=== PATIENT | male | born 1950 | race Caucasian/White ===

== ENCOUNTER 2020-11-26 06:18 | Inpatient (IN) | payer OTHER ==
[~2020-11-26] VITALS: Ht 172.7 cm; Wt 145.2 kg
[~2020-11-26 06:18] MED LIST: CARVEDILOL12.5 MG PO; CENTRUM SILVER1 EAC2 PO; COREG25 M1 PO; FOLATE PO; VITAMIN B-125000 MCG PO; WARFARIN SODIUM3 MG PO
[2020-11-26 07:05] VITALS: BP 168/85
[2020-11-26 07:55] LABS: INR 1.11
[2020-11-26 14:42] VITALS: BP 143/86
[2020-11-26 15:26] VITALS: BP 148/82
[2020-11-26 16:26] VITALS: BP 138/82
[2020-11-26 17:59] VITALS: BP 118/68
--- NOTE | 2020-11-26 19:25 | NUR ---
ASSUME PT CARE AROUND 1430. PT HAD LEFT TOTAL KNEE REPLACEMENT DONE TODAY. ARELIS DRAIN IN PLACE. TEDS/SCDS IN PLACE. NO C/O PAIN.IV LEFT AC/ SALINE LOCKED.TOLERATING FLUIDS AND FOOD. URINATED ONETIME DURING THE SHIFT. H/O SLEEP APNEA, PT HAS HOME CPAP WITH HIM. VSS. FALL PRECAUTION IN PLACE. CALL LIGHT IN REACH. WILL CALL APPROPRIATELY. PT ALERT X ORIENTED X 4. ON ROOM AIR. DAUGHTER AND IN THE ROOM TILL 1700. HOURLY ROUNDING DONE. SHIFT REPORT GIVEN TO INSTRUCTOR WATCH ASSEMBLY.
[2020-11-26 19:38] VITALS: BP 110/61
[2020-11-27 07:31] VITALS: BP 127/75
[2020-11-27 07:48] LABS: CREATININE 1.9 mg/dL (0.7-1.3); MAGNESIUM 1.7 mg/dL (1.8-2.4); POTASSIUM 4.4 mmol/L (3.5-5.1)
[2020-11-27 07:53] LABS: ABSOLUTE NEUTROPHILS 6.6 thou/uL (1.4-8.2); BASOPHILS 0.2 % (0.0-2.0); HEMATOCRIT 33.9 % (42.0-52.0); HEMOGLOBIN 11.3 gm/dL (14.0-18.0); LYMPHOCYTES 9.4 % (24.0-44.0); MCH 30.3 pg (26.0-34.0); MCHC 33.3 g/dL (28.0-37.0); MCV 91.1 fL (80.0-100.0); MONOCYTES 11.7 % (1.0-8.0); PLATELET COUNT 135 thou/uL (150-400); POLYS 78.7 % (36.0-66.0); RBC 3.72 mil/uL (4.50-6.00); RDW 14.6 % (10.5-14.5); WBC 8.4 thou/uL (4.0-11.0)
--- NOTE | 2020-11-27 08:37 | NUR ---
PT LYING IN BED. VOIDING PER URINAL. DENIES PAIN. RESTING COMFORTABLY. NO NEEDS VOICED. CALL LIGHT WITHIN REACH. FREQUENT OBSERVATION.
--- NOTE | 2020-11-27 13:01 | NUR ---
ASSESSMENT: CM REVIEWED CHART AND SPOKE WITH PATIENT ANDH IS SIGNIFICANT OTHER AT THE BEDSIDE. PT IS ALERT AND ORIENTED X4. PT IS S/P TOTAL KNEE REPLACEMENT. PT HAS A WHEELCHAIR AT HOME THAT HE NORMALLY USES WELL A WALKER AND CANE. PT HAS A RAMP TO ENTER THE HOME. PT REPORTS THAT HE HAS A GRAB BAR IN THE SHOWER. PT REPORTS THAT HE PLANS ON DOING OUTPATIENT THERAPY HERE AND [facility] AND ALREADY COMES HERE FOR LYMPHEDEMA WRAPPING OUTPATIENT. CM DISCUSSED ROLE. PT DOES NOT ANTICIPATE ANY NEEDS FROM CM. CM WILL CONTINUE TO FOLLOW TO ASSIST NEEDED.
[2020-11-27 17:15] VITALS: BP 126/70
[2020-11-27 20:27] LABS: INR 1.06; PROTIME 11.5 Seconds (10.5-12.1)
--- NOTE | 2020-11-27 20:34 | NUR ---
ASSUMED PT CARE AROUND 704. PT ALERT X ORIENTED X 4. ON ROOM AIR. VOIDING/URINALS.IV LEFT FA.PT USES CPAP AT NIGHT, USES HIS OWN CPAP FROM HOME.PICCO DRESSING/SCDS/TEDS ON. ON REGULAR DIET. WORKED WITH THERAPY TWICE, PAIN MEDS GIVEN BEFORE THERAPY. PT HAD A CONCERN WHEN HE CAN RESTART HIS WARFARIN. RN LET DR. ALCALA KNOW ABOUT IT AND SAID TO CHECK WITH THE SURGEON. RN CALLED DR. REBECCA SHELBY'S OFFICE AND LET THEM KNOW ABOUT THE PT'S QUESTION ABOUT WARFARIN, THE LADY OVER THE PHONE SAID, SHE WILL CHECK AND WILL LET THE NURESE KNOW. FALL PRECAUTION IN PLACE. CALL LIGHT IN REACH. WILL CALL APPROPRIATELY. HOURLY ROUNDING DONE. SHIFT REPORT GIVEN TO LATEX THREAD MACHINE OPERATOR.
[2020-11-27 21:24] VITALS: BP 143/73
--- NOTE | 2020-11-28 02:27 | NUR ---
ASSESSED AT START OF SHIFT. PT RESTING IN BED. HYDROCODONE GIVEN FOR LEFT KNEE PAIN. ARELIS DRESSING IN PLACE, TEDHOSE AND LYPHEDEMA DRESSING ON BLE. DENIES N/V. PT WEARS CPAP AT NIGHT. URINAL AT BEDSIDE. DR FERNANDEZ STOPPED BY TO SEE PT, RESTARTED HIS WARFRIN AND HELD PT ASPIRIN. FALL PREC IN PLACE, CALL LIGHT AT REACH WILL CONT TO MONITOR.
[2020-11-28 03:37] LABS: ALBUMIN 2.5 g/dL (3.4-5.0); CALCIUM 7.3 mg/dL (8.5-10.1); CREATININE 1.5 mg/dL (0.7-1.3); PHOSPHORUS 2.9 mg/dL (2.6-4.7); POTASSIUM 3.8 mmol/L (3.5-5.1)
[2020-11-28 09:19] VITALS: BP 154/90
--- NOTE | 2020-11-28 14:34 | NUR ---
Assumed care of pt at 0700. Pt a&ox4. Pain controlled with prn pain meds. Dressing c/d/i. Skin tear on left ocasio. Picture taken and placed in chart. Up 1x assist. Family at bedside. Call light within reach. Fall precautions in place. Will continue to monitor.
--- NOTE | 2020-11-28 15:38 | NUR ---
ON-GOING ASSESSMENT: CM REVIEWED CHART AND SPOKE WITH PHYSICAL THERAPY WHO REPORTS PT DECLINED AND LIKELY NEED POST ACUTE CARE. CM SPOKE WITH PATIENT AND PROVIDED HIM WITH A SNF LIST THAT HE WILL REVIEW. PT REPORTS HE PREFERS TO GO TO [facility]. CM DISCUSSED A CONSULT WOULD NEED TO BE PLACED AND HE WOULD HAVE TO BE EVALUATED. PT REPORTS THIS IS HIS FIRST CHOICE AND WANTS TO SEE IF HE CAN GO. CM NOTIFIED BEDSIDE RN OF REQUEST FOR CONSULT WELL [facility]. CM WILL CONTINUE TO FOLLOW.
[2020-11-28 16:50] VITALS: BP 154/93
[2020-11-28 19:55] VITALS: BP 112/62
--- NOTE | 2020-11-29 03:15 | NUR ---
ASSESSED AT START OF SHIFT. PT RESTING IN BED. DENIES PAIN ON ASSESSMENT. EVENING MEDS GIVEN AND PT JULIAN IT WELL. IV INTACT AND SALINE LOCK. ICE PACK IN PLACE. PT WEARS CPAP AT HS. JERZY LYMPEDEMA DRESSING ON BOTH EXT. FALL PREC IN PLACE AND CALL LIGHT AT REACH. ANTICIPATING D/C TO [facility].
[2020-11-29 05:10] VITALS: BP 138/72
[2020-11-29 06:23] LABS: INR 1.14; PROTIME 12.4 Seconds (10.5-12.1)
[2020-11-29 07:15] VITALS: BP 137/71
--- NOTE | 2020-11-29 10:03 | NUR ---
Assumed care of pt at 0700. Pt a&ox4. Pain controlled with prn pain meds. Bilateral lower extremities wrapped by lymphedema nurse. Cpap at night. [facility] consulted. Pt states he hopes to be accepted to inpatient rehab. Call light within reach. Fall precautions in place. Will continue to monitor.
[2020-11-29] MEDS ORDERED: NORCO7.5 PO (15:20)
[2020-11-29] MEDS ORDERED: PROTONIX 20 MG20 M1 PO (15:20)
[2020-11-29] MEDS ORDERED: VISTARIL 25 MG25 M1 PO (15:20)
[2020-11-29] MEDS ORDERED: CARVEDILOL25 MG PO (15:20)
[2020-11-29] MEDS ORDERED: CARVEDILOL12.5 MG PO (15:20)
[2020-11-29] MEDS ORDERED: [UNRECOGNIZED DRUG - REMARK] PO (15:20)
[2020-11-29 16:10] VITALS: BP 144/90
[2020-11-29 17:22] VITALS: BP 144/90
== END 2020-11-29 18:39 | DRG 470 ==
LOC: OR → TBA 06:21 → OR 11:06 → 4S 14:04 → OR 14:04 → 4S 11-29 18:39
PROVIDERS: Anesthesiology; Hospitalist; Nurse Practitioner; ADMIT Orthopaedic Surgery; ATTEND Orthopaedic Surgery
PROC: 5A09457 Assistance with Respiratory Ventilation, 24-96 Consecutive Hours, Continuous Positive Airway Pressure (ICD-10-PCS; principal; 2020-11-26)
PROC: 0SRD0J9 Replacement of Left Knee Joint with Synthetic Substitute, Cemented, Open Approach (ICD-10-PCS; principal; 2020-11-26)
DX: M17.12 Unilateral primary osteoarthritis, left knee (principal); N17.9 Acute kidney failure, unspecified; Z68.42 Body mass index [BMI] 45.0-49.9, adult; I48.91 Unspecified atrial fibrillation; E66.9 Obesity, unspecified; I10 Essential (primary) hypertension; I89.0 Lymphedema, not elsewhere classified; R53.81 Other malaise; G47.33 Obstructive sleep apnea (adult) (pediatric); Z20.822 Contact with and (suspected) exposure to COVID-19; Z86.718 Personal history of other venous thrombosis and embolism; Z79.82 Long term (current) use of aspirin; Z79.899 Other long term (current) drug therapy
CPT/HCPCS: 10102; 50010; 50101; 50415; 51225; 51412; 53000; 53078; 53364; 54118; 56524; 56525; 56527; 56528; 56531; 57095; 57103; 57180; 58585; 58847; 62110; 62850; 70005

== ENCOUNTER 2020-11-29 12:55 | Inpatient (IN) | payer OTHER ==
[~2020-11-29] VITALS: Ht 172.7 cm; Wt 133.8 kg
[2020-11-29] MEDS ORDERED: VISTARIL 25 MG25 M1 PO (15:20)
[2020-11-29] MEDS ORDERED: CARVEDILOL25 MG PO (15:20)
[2020-11-29] MEDS ORDERED: CARVEDILOL12.5 MG PO (15:20)
[2020-11-29] MEDS ORDERED: PROTONIX 20 MG20 M1 PO (15:20)
[2020-11-29] MEDS ORDERED: [UNRECOGNIZED DRUG - REMARK] PO (15:20)
[2020-11-29] MEDS ORDERED: NORCO7.5 PO (15:20)
--- NOTE | 2020-11-29 18:25 | NUR ---
NEW ADMISSION FROM [address] [place] [address]. CAME IN VIA BED WITH HOSP STAFF. ALERT AND ORIENTATED X 4. PAIN IS STABLE. HAS ICE PACK TO L KNEE INCISION SITE. LYMPHEDEMA WRAP IN PLACE. PEDAL PULSES PALPABLE. ROOM ORIENTATION GIVEN TO PT. REPORT GIVEN TO ONCALFREDO HERNANDEZ RN, ALETHEA.
[2020-11-29 19:31] VITALS: BP 133/71
--- NOTE | 2020-11-29 23:27 | NUR ---
PT ADMITTED THIS EVENING AFTER HAVING LEFT KNEE REPLACEMENT. VSS. MEDS GIVEN ORDERED AND WELL TOLERATED. PT ADMIT/HX/AND CONSENTS COMPLETED. ICE PACK APPLIED TO LEFT KNEE FOR COMFORT. PRN PAIN MEDICATION WORKING WELL. DSGS TO LEFT LEG DRY AND INTACT. LYMPH EDEMA WRAPS IN PLACE. PT VOIDING MODERATE AMOUNT OF YELLOW URINE PER URINAL. SLEEPING WELL. WILL CONTINUE TO MONITOR FREQUENTLY.
[2020-11-30 04:31] LABS: HEMATOCRIT 30.2 % (42.0-52.0); HEMOGLOBIN 10.2 gm/dL (14.0-18.0); MCH 30.6 pg (26.0-34.0); MCHC 33.8 g/dL (28.0-37.0); MCV 90.3 fL (80.0-100.0); RBC 3.35 mil/uL (4.50-6.00); RDW 14.3 % (10.5-14.5); WBC 4.8 thou/uL (4.0-11.0)
[2020-11-30 04:49] LABS: CALCIUM 8.2 mg/dL (8.5-10.1); CREATININE 1.2 mg/dL (0.7-1.3); POTASSIUM 3.9 mmol/L (3.5-5.1)
[2020-11-30 08:54] VITALS: BP 164/71
[2020-11-30 10:22] LABS: INR 1.29; PROTIME 13.9 Seconds (10.5-12.1)
--- NOTE | 2020-11-30 13:21 | NUR ---
ASSUMED CARE AT 0700. ALERT AND ORIENTATED X 4. REPORTED PAIN IN L KNEE AT 4/10 AND REQ FOR HYDROCODONE WITH GOOD RELIEF. APPETITE GOOD, LAST BM ON 11/26 AND ROBERTO CARLOS SAIL FINISHER HAND ADDED STOOL REGIMEN. L KNEE SURGICAL DRESSING WITH LYMPHEDEMA WRAP IN PLACE. PEDAL PULSES PALPABLE. ON COUMADIN FOR HX OF DVT, NO NOTED BLEEDING, WILL CONT TO MONITOR.
[2020-11-30 13:51] LABS: FOLIC ACID 20.8 ng/mL (8.6-58.9)
[2020-11-30 19:10] VITALS: BP 146/82
--- NOTE | 2020-12-01 00:01 | NUR ---
PT ALERT AND ORIENTED X 4. CPAP ON DURING THE NIGHT. LEFT KNEE DRESSING C/D/I. VOIDING ADEQUATE AMTS CLEAR YELLOW URINE PER URINAL. PT DENIES PAIN OR DISCOMFORT. BED ALARM ON FOR SAFETY. PT APPEARS TO BE SLEEPING ON HOURLY ROUNDS.
[2020-12-01 02:05] LABS: GLYCOHEMOGLOBIN (HGB A1C) 4.7 % (4.8-5.6)
[2020-12-01 05:19] LABS: INR 1.4
--- NOTE | 2020-12-01 09:37 | NUR ---
WOUND CARE CONSULT; AWAKE, ALERT, LYMPHEDEMA WRAPS IN PLACE, STATES HILLARY PT TREATING L LEG WOUND WHEN WRAPS APPLIED, PT TRANSFERRED TO [address] [place] [id number] FOR THERAPY, WILL DC CONSULT, ROAD CLEANER IN ROOM, TO RECONSULT IF NEEDED, MESSAGE LEFT FOR OT ON NEW RM# ROAD CLEANER AWARE
--- NOTE | 2020-12-01 12:46 | NUR ---
ASSUMED CARE AT 0700. SLEPT WELL. ALERT AND ORIENTATED X4. PAIN IS STABLE AND MANAGEABLE. DOES NOT REQ ANY PAIN MEDS THIS MORNING. LLE WITH SURGICAL DRESSING INTACT. LYMPHEDEMA WRAP IN PLACE AND WILL BE CHANGED TOMORROW BY LYMP THERAPIST. PEDAL PULSES PALPABLE AND ABLE TO MOVE ALL TOES. PARTICIPATING WITH TERAPY. APPETITE GOOD, STOOL REGIMEN GIVEN, LAST BM ON 11/26. WILL CONT TO MONITOR.
--- NOTE | 2020-12-01 13:17 | NUR ---
Nutrition: RD received consult re: weight loss, S/P knee replacement. See education log for details. Pt eating well on regular diet. PMH: HTN, obesity, ulcer. Lymphedema to bilateral legs. Would recommend consider heart healthy diet restriction. Otherwise, low nutrition risk.
--- NOTE | 2020-12-01 15:43 | NUR ---
ASSESSMENT: CM REVIEWED CHART AND SPOKE WITH PATIENT. PT WAS ADMITTED TO 5 ON TUESDAY AFTER HAVING AN ELECTIVE TKA DUE TO FAILED OUTPATIENT TREATMENT FOR HIS ADVANCED DJD. PT LIVES AT HOME WITH HIS SHADE. PT HAS A RAMP TO ENTER HIS HOME. PT HAS A YULISSA WHEELCHAIR AND HAS BEEN USING THIS FOR ABOUT THE PAST THREE MONTHS DUE TO DIFFICULTY WITH AMBULATION. PT ALSO HAS A WALKER AND CANE AT HOME. PT WAS ABLE TO TRANSFER SELF IN WHEELCHAIR. PT HAS A GRAB BAR IN THE SHOWER WELL A SHOWER BENCH. PT REPORTS HE HAS NEVER HAD HH IN THE PAST OR BEEN TO A POST ACUTE CARE STAY. PT WAS COMING TO [facility] OUTPATIENT FOR LYMPHEDMA WRAPPING. IT PATIENT IS NEEDING ANY OUTPATIENT THERAPY AT DISCHARGE HE PREFERS TO COME TO [facility]. CM DISCUSSED ROLE. PT WILL CONTINUE TO WORK WITH THERAPIES. CM WILL CONTINUE TO FOLLOW TO ASSIST NEEDED. PTS PCP IS DR. LELO GR.
[2020-12-01 19:34] VITALS: BP 134/77
--- NOTE | 2020-12-01 23:46 | NUR ---
PT ALERT AND ORIENTED X 4. DRESSING TO LLE C/D/I. LYMPHEDEMA WRAPS TO LE'S. CPAP ON DURING THE NIGHT. LAXATIVES GIVEN ORDERED. NO RESULTS YET. PT DENIES PAIN OR DISCOMFORT. BED ALARM ON FOR SAFETY. PT APPEARS TO BE SLEEPING ON HOURLY ROUNDS.
[2020-12-02 05:53] LABS: INR 1.47; PROTIME 15.7 Seconds (10.5-12.1)
[2020-12-02 08:00] VITALS: BP 123/71
--- NOTE | 2020-12-02 11:36 | NUR ---
PT ALERT AND ORIENTED TIMES FOUR. VSS. PT C/O PAIN PRN PAIN MEDICATIONS CONTROLLING PAIN WELL. PT UP SITTING IN THE WC. PT TOLERATES MEDS AND MEALS. PT AT BEDSIDE. PT PROGRESSING TOWRADS POC GOALS.
--- NOTE | 2020-12-02 13:48 | NUR ---
Team meeting, recommendation: wound care consult. lymphedema wraps. Will need bariatric bedside commode at [place]. insurance doesn't cover. working on slide board transfer. Sleeps in recliner chair at home. AL 12/12/20 ( pt, ot, nursing ).
[2020-12-02 19:00] VITALS: BP 128/70
--- NOTE | 2020-12-03 02:35 | NUR ---
ASSESSMENT: PT REMAIN ALERT AND ORIENT TIMES FOUR. VISITOR WAS AT THE BEDSIDE AT THE BEGINNING OF THE SHIFT UNTIL 0900 PM. VSS, AFEBRILE. PRN PAIN MEDS GIVEN FOR C/O LEG PAIN. LYMPH WRAPS INTACT. POSSIBLE DC TO HOME ON 12/12. SLOW PROGRESS TOWARDS DC GOAL, WILL CONTINUE TO MONITOR.
[2020-12-03 06:05] LABS: INR 1.7; PROTIME 17.1 Seconds (9.3-11.4)
[2020-12-03 07:15] VITALS: BP 147/94
--- NOTE | 2020-12-03 16:19 | NUR ---
PT RESTING COMFORTABLY. WORKED WITH PT/OT. UP TO CHAIR MORE THAN IN BED. PT AFEBRILE, ADEQUATE UOP, NO BM, APPROPRIATE APPETITE. ARELIS DRESSING IN PLACE. WOUND CARE TO BE COMPLETED BY LYMPH TEAM. PT HAS BEEN THOUROUGHLY UPDATED AND EDUCATED ON PT CONDITION AND POC.
[2020-12-03 18:13] VITALS: BP 115/55
--- NOTE | 2020-12-04 00:52 | NUR ---
ASSUMED CARE AT 1900 ON 12/03. PATIENT IS A&OX4, DENIES PAIN OR DISCOMFORT. ARELIS DRESSING TO LEFT KNEE CDI, LYMPHEDEMA WRAPS IN PLACE ON BLE. BOWEL MOVEMENT MEDICATIONS ADMINISTERED, BOWEL SOUNDS PRESENT AND ACTIVE, ABD SOFT TO PALPATION. CPAP ON AT HS, CURRENTLY SLEEPING IN BED, URINAL AT BEDSIDE, BED ALARM ON, AND CALL LIGHT W/IN REACH. WILL CONTINUE TO MONITOR.
[2020-12-04 06:36] LABS: INR 1.92; PROTIME 20.3 Seconds (10.5-12.1)
[2020-12-04 08:25] VITALS: BP 158/68
--- NOTE | 2020-12-04 08:41 | NUR ---
PT UP WITH OT AND HAD A SOFT BM. PT REFUSED ANY STOOL LAXATIVES AT THIS TIME OR STOOL SOFTENER. ADM LOVENOX, PT STATED HE WAS GETTING THAT ONCE A DAY AROUND DINNER TIME. PT STATED HE TRIED TO GET LOVENOX BEFORE FOR A MONTH AND IT COST $1700 SO HE DIDN'T TAKE IT. PT ON COUMADIN FOR DVT. PT LUNGS CLEAR AND ON ROOM AIR. PT IN W/C AT THIS TIME, PT USING SLIDE BOARD FOR TRANSFERS.
--- NOTE | 2020-12-04 09:00 | HC ---
[facility] [place] [address] CONSULTATION Name: JOSÉ MIGUEL CUEVAS Room #: 503-P [facility] IN M.R.#: [id number] Admission: 11/29/20 Attend Phys: Cal Mac MD Discharge: Date of : 52 Report #: [id number] THIS REPORT FOR: cc: Toro Garnett K. Steven DO Althoff, Jeffrey R. MD ~ DOC #: [id number] Ronni Cho MD DATE OF SERVICE: 12/02/2020 CHIEF COMPLAINT: Ulceration to the left lower extremity. HISTORY OF PRESENT ILLNESS: This is a 70-year-old male patient admitted to the hospital after left total knee replacement, having failed outpatient therapeutic treatment. He has lymphedema and has been seeing occupational therapy for wrappings. He has had limited mobility due to his left knee. He was noted to have an ulceration on the left pretibial region. I have been asked to see him in this regard. PAST MEDICAL HISTORY: Positive for history of hypertension, previous DVT, history of sleep apnea, history of bilateral lower extremity lymphedema and obesity. SOCIAL HISTORY: Negative for alcohol or tobacco use. MEDICATIONS: Include Coumadin, Coreg, hydrocodone, Vistaril, Protonix, cyanocobalamin, Centrum Silver. ALLERGIES: No known drug allergies. FAMILY HISTORY: Noncontributory. REVIEW OF SYSTEMS: CONSTITUTIONAL: Denies fever, chills, weight loss. NEUROLOGICAL: The patient has quadriplegia. Denies focal weakness, some tingling. EYES: The patient denies visual changes, redness or drainage. ENT: The patient denies earache, nasal drainage, sore throat. CARDIOVASCULAR: The patient denies chest pain, palpitations, diaphoresis. PULMONARY: No cough, shortness of breath. GASTROINTESTINAL: Denies nausea, vomiting, diarrhea or abdominal pain. ORTHOPEDIC: The patient has swelling in both lower extremities, ulceration to the left pretibial region and some pain in his left knee. Others listed in a 14-point review of systems are negative. PHYSICAL EXAMINATION: [facility] [address] [place] [address] CONSULTATION Name: JOSÉ MIGUEL CUEVAS Room #: 503-P [facility] IN M.R.#: [id number] Admission: 11/29/20 Attend Phys: Cal Mac MD Discharge: Date of : 52 Report #: [id number] VITAL SIGNS: Include temperature 36.5, pulse 63, respiration 18, blood pressure 134/77. GENERAL: This is a chronically ill-appearing male. The patient appears to be in minimal distress. HEENT: Head is normocephalic. Nose and throat are clear. NECK: Supple. LUNGS: Diminished. HEART: Regular rhythm. ABDOMEN: Soft, bowel sounds present. Lower extremities: Demonstrate 2+ edema bilaterally. He has a venous type ulceration of the left pretibial region, recent surgical changes to the left knee is noted at this time. LABORATORY DATA: Include white blood cell count 4.8 with a hemoglobin 10.2. Sodium is 141, potassium 3.9, chloride 106, CO2 27, BUN 17, creatinine 1.2. CLINICAL IMPRESSION: 1. Venous type ulceration to the left pretibial region. 2. Lymphedema, bilateral lower extremities. 3. Recent left total knee replacement, 11/26/2020. 4. Hypertension. 5. Atrial fibrillation. RECOMMENDATIONS: At this point in time, we will recommend Aquacel AG and bordered foam to be changed 3 times per week. He will continue to receive lymphedema therapy per the occupational therapist, Vannessa, while here in the hospital. I appreciate being asked to see him in consultation. Ronni Cho MD JRA/MIHIR <ELECTRONICALLY SIGNED> By: Ronni Cho MD 12/04/20 0900 [id number] Ronni Cho MD /nt
--- NOTE | 2020-12-04 09:11 | NUR ---
PT GETTING READY TO HAVE PHYSICAL THERAPY AND WANTING A PAIN PILL. ADM NORCO 7.5MG PO FOR PAIN TO LOWER LEGS OF 3 ON 1-10 SCALE. PT STATED THAT HE WILL NEED THE MED DURING THERAPY SESSION. PT GETTING LEFT LEG DRESSING CHANGED BY WOUND NURSE, TOOK A PIC OF LEFT FOOT AND PLACED IN CHART.
--- NOTE | 2020-12-04 12:23 | NUR ---
Chart review, cont. dcp. Slide board and bbsc not covered by insurance. Will cont. discharge planing. Dc 9th with hh ( pt ot nursing).
[2020-12-04 19:14] VITALS: BP 148/74
--- NOTE | 2020-12-04 23:52 | NUR ---
PT ALERT AND ORIENTED X 4. ARELIS DRESSING INTACT TO LEFT KNEE. NAYELY WRAPS INTACT TO BILAT LE'S. PT REFUSED LACTULOSE, MIRALAX AND COLACE AT HS. PT DENIES PAIN OR DISCOMFORT. BED ALARM ON FOR SAFETY. PT APPEARS TO BE SLEEPING ON HOURLY ROUNDS. CPAP ON DURING THE NIGHT.
[2020-12-05 04:33] LABS: INR 2.23; PROTIME 23.4 Seconds (10.5-12.1)
[2020-12-05 05:01] LABS: ABSOLUTE NEUTROPHILS 2.5 thou/uL (1.4-8.2); BASOPHILS 0.9 % (0.0-2.0); EOSINOPHILS 4.2 % (0.0-3.0); HEMATOCRIT 29.8 % (42.0-52.0); HEMOGLOBIN 10.1 gm/dL (14.0-18.0); LYMPHOCYTES 20.4 % (24.0-44.0); MCH 30.4 pg (26.0-34.0); MCHC 33.7 g/dL (28.0-37.0); MCV 90.1 fL (80.0-100.0); MONOCYTES 14.1 % (1.0-8.0); PLATELET COUNT 196 thou/uL (150-400); POLYS 60.4 % (36.0-66.0); RBC 3.31 mil/uL (4.50-6.00); RDW 14.5 % (10.5-14.5); WBC 4.1 thou/uL (4.0-11.0)
[2020-12-05 05:47] LABS: CALCIUM 8.3 mg/dL (8.5-10.1); CREATININE 1.4 mg/dL (0.7-1.3); MAGNESIUM 1.8 mg/dL (1.8-2.4); POTASSIUM 3.8 mmol/L (3.5-5.1)
[2020-12-05 08:30] VITALS: BP 136/65
[2020-12-05 19:25] VITALS: BP 139/71
--- NOTE | 2020-12-05 19:37 | NUR ---
ASSUMED C/O PT AT 0700. PT RESTING QUIETLY WITH EYES CLOSED. PT. A&OX4. PT GAIT STEADY WITH GB AND WALKER. PT WORKS WITH THERAPIES. TOLERATING DIET. GOOD APPETITE NOTED. WILL CONTNIUE TO MONITOR
--- NOTE | 2020-12-06 03:22 | NUR ---
ASSUMED CARE AT 1900 OF 12/05. PATIENT IS A&OX4, DENIES PAIN OR SOB. LYMPHEDEMA WRAPS IN PLACE AN INTACT ON BLE. ARELIS DRESSING IN PLACE OVER LEFT KNEE CDI. URINAL PLACED AT BEDSIDE AND USED BY PATIENT INDEPENDENTLY. CPAP ON AT HS, CURRENTLY SLEEPING, CALL LIGHT W/IN REACH AND BED ALARM ON. WILL CONTINUE TO MONITOR.
--- NOTE | 2020-12-06 08:15 | NUR ---
PT LYING IN BED THIS AM. PT HAS BOTH LOWER EXT WRAPPED IN NAYELY BANDAGE. PT LEFT EXT MORE EDEMATOUS THAN RT. PT USES SLIDE BOARD WHEN TRANSFERING. PT ABLE TO SLIDE WITH TOUCH ASSIST. PT USES URINAL TO VOID, PT URINE IS DARK COLOR. LUNGS CLEAR, PT HAS CPAP AT HS. ACTIVE BOWEL SOUNDS.
[2020-12-06 08:42] VITALS: BP 142/75
--- NOTE | 2020-12-06 09:00 | NUR ---
PT UP TO BSC IN BATHROOM VIA SLIDE BOARD FROM W/C TO COMMODE. PT HAD SOFT BM. PT STATED I DON'T NEED THOSE LAXATIVES.
--- NOTE | 2020-12-06 14:40 | NUR ---
PT FINISHED WITH THERAPY AND STATED HE NEEDED A PAIN PILL FOR PAIN OF 3 ON 1-10 SCALE. ADM HYDROCODONE 7.5MG PO FOR PAIN. PT IN BED WITH LEGS ELEVATED.
[2020-12-06 21:04] VITALS: BP 129/69
--- NOTE | 2020-12-07 04:13 | NUR ---
PT RESTED WELL THROUHGOUT HOURLY ROUNDS , BED ALARM REMAINS ON, CALL LIGHT IN REACH , NO CHANGES NOTED IN PT ASSESSMENT.
[2020-12-07 05:21] LABS: INR 2.34; PROTIME 24.5 Seconds (10.5-12.1)
[2020-12-07 09:10] VITALS: BP 126/74
--- NOTE | 2020-12-07 09:33 | NUR ---
PT REFUSED LAXATIVES AT THIS TIME DUE TO SOFT BM EARLY THIS AM. PT IN BED WITH LE ELEVATED. PT STATED HE THINKS HE HAS PHYSICAL THERAPY AT NOON AND WILL PROB LIKE A PAIN MED AT THAT TIME. PT LUNGS CLEAR. PT HAS EDEMA TO PEDAL BILAT, LEFT SLIGHTLY MORE THAN RT. PT USES SLIDE BOARD TO TRANSFER TO CHAIR OR TOILET OR W/C.
--- NOTE | 2020-12-07 11:41 | NUR ---
PT WORKING WITH THERAPY. ADM METHOCARBANOL FOR COMPLAINTS OF MUSCLE SPASMS.
--- NOTE | 2020-12-07 14:42 | NUR ---
ADM HYDROCODONE 7.5MG PO FOR PAIN TO LEFT LEG OF 3 ON 1-10 SCALE.
[2020-12-07 18:00] VITALS: BP 126/74
[2020-12-07 19:00] VITALS: BP 112/64
--- NOTE | 2020-12-08 03:18 | NUR ---
ASSUMED CARE AT 1900 OF 12/07. PATIENT IS A&OX4, REPORTS PAIN AND MUSCLE SPAMS IN LLE EXTREMITY. PRN HYDROCODONE AND METHOCARBAMOL ADMINISTERED PER PATIENT REQUEST. PATIENT REFUSED LAXITIVES AND STOOL SOFTNER, DUE TO HAVING BM IN AM. USING URINAL AT BEDSIDE. CPAP ON AT HS. BED ALARM ON AND CALL LIGHT W/IN REACH.
[2020-12-08 08:47] VITALS: BP 1321/74
--- NOTE | 2020-12-08 11:43 | NUR ---
Nutrition followup: Pt eating 100% of meals on regular diet. BM 12/07. No new weight. labs/meds reviewed. Prior education completed with pt for weight loss. Continue to recommend consideration of Heart healthy restrictions. Low nutrition risk.
--- NOTE | 2020-12-08 13:29 | NUR ---
ASSUMED CARE AT 0700. ALERT AND ORIENTATED X 4. NO REPORTED PAIN TODAY. PHY THERAPY STATED PT HAVING DIFFICULTY TO STRETCH LLE DUE TO THE SURGICAL DRESSING PULLING ON THE SKIN. DR FERNANDEZ OFFICE CALLED SEVERAL TIMES AND UNABLE TO LEAVE ANY MESSAGE. LYMPHEDEMA WRAP IN PLACE AND WOUND CARE DONE THEN. ABLE TO MOVE ALL TOES. TRANSFER WITH SLIDE BOARD FROM WC TO BED. PT REFUSED HIS STOOL REGIMEN TODAY, HAS HAD COUPLE OF STOOL YESTERDAY. MARIO KEYES. PARTICIPATING WITH THERAPY.
[2020-12-08 19:32] VITALS: BP 121/63
--- NOTE | 2020-12-09 03:13 | NUR ---
ASSUMED CARE AT 1900 OF 12/07. PATIENT IS A&OX4, DENIES PAIN OR SOB. LAXITIVES AND STOOL SOFTNER ADMININSTERED. ARELIS DRESSING IS IN PLACE AND INTACT, BILATERAL LYMPHEDEMA WRAPS ARE IN PLACE. CPAP ON AT HS, SLEEPING IN BED, BED ALARM ON, ABLE TO REPOSITION SELF IN BED AND CALL LIGHT W/IN REACH. URINAL AT BEDSIDE. WILL CONTINUE TO MONITOR.
--- NOTE | 2020-12-09 14:00 | NUR ---
Team meeting, recommendation: Oupt therapy for depression. Needs to cont. therapy dc on 12/15. Slide board if needs it, and bariatric bedside commode. Delia burton ( pt, ot, nursing).
[2020-12-09 19:07] VITALS: BP 114/63
[2020-12-09 19:14] VITALS: BP 140/65
--- NOTE | 2020-12-09 20:04 | NUR ---
ASSUMED CARE OF PT AT 0700. WILL CONTINUE TO MONITOR
--- NOTE | 2020-12-10 03:26 | NUR ---
PT BEEN RESTING IN NO ACUTE DISTRESS.A/OX4.VSS.DENIES PAIN.LYMPHEDEMA DRESSING CDI.CPAP ON WHILE SLEEPING.REFUSED PM BM REGIMEN,LAST BM 11/08,EDUCATED ON THE IMPORTANT OF BEING COMPLAINT WITH BM REGIMEN,VOICED UNDERSTANDING BUT CONT TO DECLINE STATING HE DOES NOT NEED THE MEDS.PT TO DISCHARGE TO HOME ON TUESDAY.
[2020-12-10 05:38] LABS: INR 2.3; PROTIME 24.1 Seconds (10.5-12.1)
--- NOTE | 2020-12-10 07:52 | NUR ---
Met with and jorge a after team meeting yesterday. Both agree with dcp. Jorge A reported he already ordered the bariatric bedside commode to be delivered to his home and if needs to use slide board, he wants wooded from [facility]. Dc 12th with [facility]. Will cont. following as needed for dc needs.
[2020-12-10 08:00] VITALS: BP 135/82
[2020-12-10 08:21] VITALS: BP 135/82
--- NOTE | 2020-12-10 15:50 | PLAN ---
[facility] [place] [address] REHAB UNIT PLAN OF CARE Name: JOSÉ MIGUEL CUEVAS Room #: 503-P ADM IN M.R.#: [id number] Admission: 11/29/20 Attend Phys: Cal Mac MD Discharge: Date of : 51 Report #: [id number] THIS REPORT FOR: cc: Toro Garnett K. Steven DO Smithson, David G. MD ~ DOC #: [id number] Cal Mac MD DATE OF SERVICE: 12/01/2020 PROGRESS NOTE AND OVERALL PLAN OF CARE HISTORY OF PRESENT ILLNESS: The patient was seen today on the inpatient rehabilitation huber. He is in no distress. Temperature 36.7, pulse 66, respirations 18, blood pressure 146/82. His left knee is dressed. Dressing remains intact and dry. No focal calf swelling. He does have chronic lower extremity edema bilaterally. He is pleasant, alert, appears motivated. Notes that he has been basically wheelchair bound for the past 3 months or so, but could transfer himself stand pivot premorbidly. He did have some assistance with ADLs from his and needed a boost, intended to stay in his lift chair/recliner chair. He was using a manual wheelchair and was able to help propel them with his lower extremities. Post-surgery, he is now on the acute inpatient rehab huber. Functionally, he does have sitting flexion 90 degrees with supine extension -10. Transfers are independent. Sit to stand, bed to wheelchair are mod assist with the sliding board. He has not been ambulatory. In occupational therapy, he is working on ADLs with evaluations being completed. ASSESSMENT: A 70-year-old male with the following problem list: 1. Degenerative arthritis, status post left total knee replacement 11/26/2020, weightbearing as tolerated. 2. Acute renal insufficiency. 3. Bilateral lower extremity lymphedema. 4. Hypertension. 5. History of deep venous thrombosis with history of atrial fibrillation, on home anticoagulation. 6. Obstructive sleep apnea, on home CPAP. 7. Obesity. 8. Premorbidly wheelchair bound. PLAN: The overall plan of care is based on the pre-admit screen and information garnered from therapy assessments. 1. Estimated length of stay is probably 7-14 days pending progress. 2. Medical prognosis is reasonably good. 3. Anticipated interventions includes the interdisciplinary acute inpatient rehabilitation program. 4. Anticipated functional outcomes would be for [place] [address] REHAB UNIT PLAN OF CARE Name: JOSÉ MIGUEL CUEVAS Room #: 503-P [facility] IN [facility]#: [id number] Admission: 11/29/20 Attend Phys: Cal Mac MD Discharge: Date of : 52 Report #: [id number] as basic transfers, especially for mobility and ADLs and also hopefully be able to start with ambulation. 5. Discharge destination would be back to the home setting. He lives with his in a house. 6. Expected therapy by discipline includes PT and OT 1-1/2 hours per day each 5 days a week throughout the duration of the acute inpatient rehabilitation stay. ADDENDUM: The patient's prognosis for significant practical improvement within a reasonable period of time appears good. Given the patient's complex medical condition and the risk of further medical complication, rehabilitation services could not be safely provided at the lower level of care such as a [place] [facility] facility. Cal Mac MD DGS <ELECTRONICALLY SIGNED> By: Cal Mac MD 12/10/20 1550 [id number] Cal Mac MD /nt
[2020-12-10 16:20] VITALS: BP 143/80
[2020-12-10 19:17] VITALS: BP 147/82
--- NOTE | 2020-12-11 01:20 | NUR ---
PT ASSESSMENT COMPLETED AND VSS. MEDS GIVEN ORDERED AND WELL TOLERATED. FALL PRECAUTIONS IN PLACE. PRN PAIN MEDICATION WORKING WELL. DSG AND LYMPH EDEMA WRAPS ON LEGS DRY AND INTACT. CPAP ON AT HS. PT SLEEPING WELL. DENIES NEEDS. WILL CONTINUE TO MONITOR FREQUENTLY.
[2020-12-11 08:41] VITALS: BP 134/79
--- NOTE | 2020-12-11 10:00 | NUR ---
PT SITTING UP IN W/C THIS AM. PT ABLE TO WHEEL SELF AROUND USING FEET. PT HAS BILATERAL LOWER EXT WRAPS. PT LEFT IS MORE EDEMATOUS THAN RT. PT COMPLAIN OF MUSCLE SPASMS TO LEFT LEG. PT LUNGS ARE CLEAR. PT USES URINAL WHICH HAS TEA COLOR URINE. PT GETTING READY TO WORK WITH THERAPY.
--- NOTE | 2020-12-11 10:25 | NUR ---
ADM METHOCARBANOL 1000MG PO FOR PAIN OF MUSCLE SPASMS. PT DID WANT A PAIN MED ALSO, REC. ONE AT A TIME HE CHOOSE MUSCLE RELAXER AST THIS TIME.
--- NOTE | 2020-12-11 17:40 | NUR ---
ADM HYDROCODONE 10MG PO FOR PAIN TO LEGS OF 6 ON 1-10 SCALE. PT BACK IN BED AND AT BEDSIDE.
[2020-12-11 19:22] VITALS: BP 136/74
--- NOTE | 2020-12-12 00:32 | NUR ---
PT ALERT AND ORIENTED X 4. LEFT KNEE DRESSING C/D/I. LYMPHEDEMA WRAPS INTACT TO BILAT LE'S. CPAP ON DURING THE NIGHT. PT DENIES PAIN OR DISCOMFORT. BED ALARM ON FOR SAFETY. PT APPEARS TO BE SLEEPING ON HOURLY ROUNDS.
[2020-12-12 06:39] LABS: INR 2.25; PROTIME 23.6 Seconds (10.5-12.1)
[2020-12-12 07:12] VITALS: BP 156/62
--- NOTE | 2020-12-12 08:44 | NUR ---
PT SITTING UP IN W/C. PT COMPLAINED OF PAIN TO SHOULDERS OF 4 ON 1-10 SCALE. PT LUNGS CLEAR. PT USES CPAP AT HS. PT LOWER EXT WRAPPED IN NAYELY WRAP. PT HAS EDEMA TO LOWER EXT, LEFT PEDAL IS MORE EDEMATOUS THAN RT. PT ABLE TO USE SLIDE BOARD TO TRANSFER FROM W/C TO TOILET. ADM NORCO 10MG PO FOR PAIN TO SHOULDERS. LAST BM ON 12/11. PT REFUSED LAXATIVES THIS AM. PT DIDN'T RECIEVE COREG DUE TO PULSE UNDER 60.
--- NOTE | 2020-12-12 10:00 | NUR ---
ADM METHOCARBANOL 1000MG PO FOR COMPLAINTS OF TIGHTNESS, SPASMS TO LEFT THIGH.
--- NOTE | 2020-12-12 12:55 | NUR ---
Cont dcp as needed for discharge needs.
--- NOTE | 2020-12-12 15:45 | NUR ---
CALLED DR. MCDANIEL OFFICE FOR DISCHARGE DATE AND DRESSING CHANGE ORDERS.
[2020-12-12] MEDS ORDERED: NORCO 10-325 T1 EACH PO (15:56)
--- NOTE | 2020-12-12 17:49 | NUR ---
ADM HYDROCODONE 10MG PO FOR PAIN TO LEFT LEG OF 4 ON 1-10 SCALE.
[2020-12-12 19:06] VITALS: BP 145/66
--- NOTE | 2020-12-13 00:23 | NUR ---
PT ALERT AND ORIENTED X 4. MODIFIED INDEPENDENT IN ROOM WITH SLIDEBOARD. LYMPHEDEMA WRAPS INTACT TO BILAT LE'S. DRESSING TO LEFT KNEE C/D/I. PT DENIES PAIN OR DISCOMFORT. CPAP ON DURING THE NIGHT. PT APPEARS TO BE SLEEPING ON HOURLY ROUNDS.
[2020-12-13 05:21] LABS: CALCIUM 8.5 mg/dL (8.5-10.1); CREATININE 1.7 mg/dL (0.7-1.3); MAGNESIUM 1.7 mg/dL (1.8-2.4); POTASSIUM 3.8 mmol/L (3.5-5.1)
[2020-12-13 05:23] LABS: ABSOLUTE NEUTROPHILS 1.7 thou/uL (1.4-8.2); BASOPHILS 1.1 % (0.0-2.0); HEMATOCRIT 32.4 % (42.0-52.0); HEMOGLOBIN 10.8 gm/dL (14.0-18.0); LYMPHOCYTES 28.1 % (24.0-44.0); MCH 30.5 pg (26.0-34.0); MCHC 33.4 g/dL (28.0-37.0); MCV 91.4 fL (80.0-100.0); PLATELET COUNT 142 thou/uL (150-400); POLYS 48.8 % (36.0-66.0); RBC 3.54 mil/uL (4.50-6.00); RDW 15.6 % (10.5-14.5); WBC 3.4 thou/uL (4.0-11.0)
--- NOTE | 2020-12-13 08:05 | NUR ---
ASSUMED CARE AT 0700. PATIENT IS ALERT AND ORIENTEDX4. PATIENT DE SOUZA'S, COW BUYER ARE EQUAL. LUNGS ARE CLEAR. ABD IS SOFT WITH BSX4. LEFT KNEE BANDAGE DRY AND INTACT. PATIENT IS MOD/I IN THE ROOM. PATIENT HAS LYMPHEDEMA WRAPS ON. FALL AND SAFETY PROTOCOLS IN PLACE. C/O LEFT KNEE PAIN. MEDICATED WITH PRN PAIN MED. CONTINUES TO PROGRESS TOWARDS D/C GOALS. WILL CONTINUE TO MONITER.
[2020-12-13 08:16] VITALS: BP 163/86
--- NOTE | 2020-12-13 09:08 | NUR ---
ASSUMED CARE AT 0700. PATIENT IS ALERT AND ORIENTED X4. PATIENT DE SOUZA'S, LAPEL STITCHER ARE EQUAL. LUNGS ARE CLEAR. ABD IS SOFT WITH BSX4. VOIDING CLIFF COLORED URINE. HAS JERZY L.E. WRAPS ON FOR LYMPHEDEMA. FALL AND SAFETY PROTOCOLS IN PLACE. C/O LEFT KNEE PAIN. MEDICATED WITH PRN PAIN MED. CONTINUES TO PROGRESS SLOWLY TOWARDS D/C GOALS. WILL CONTINUE TO [facility].
[2020-12-13 20:15] VITALS: BP 123/65
--- NOTE | 2020-12-14 01:05 | NUR ---
PT ASSESSMENT COMPLETED AND VSS. PRN PAIN MEDICATION WORKING WELL. DSGS ON JERZY LEGS DRY AND INTACT. PT VOIDING LARGE AMOUNT PER URINAL. CPAP ON AT HS. PT SLEEPING WELL. WILL CONTINUE TO MONITOR FREQUENTLY.
[2020-12-14 07:15] VITALS: BP 138/71
[2020-12-14 07:45] VITALS: BP 138/71
--- NOTE | 2020-12-14 14:29 | NUR ---
ASSUMED C/O PT AT 0700. PT RESTING IN BED WITH BLE ELEVATED. PT A&OX4. PT. DENIES PAIN. PT IS MOD I IN ROOM AT THIS TIME. PT. TRANSFERS TO AND FROM BED TO AND WC TO BATHROOM. SBA ONLY. PT WILLINGLY WORKS WITH THERAPIES. PT IS CALL LIGTH APPROPRIATE. WILL CONITNUE TO MONITOR.
--- NOTE | 2020-12-14 14:46 | HC ---
[facility] [place] [address] CONSULTATION Name: JOSÉ MIGUEL CUEVAS Room #: 503-P [facility] [place] .R.#: [id number] Admission: 11/29/20 Attend Phys: Cal Mac MD Discharge: Date of : 52 Report #: [id number] THIS REPORT FOR: cc: Toro Garnett K. Steven DO Deutch, Neal B. PhD ~ DOC #: [id number] Gato Grossman, PhD DATE OF SERVICE: 12/07/2020 NEUROBEHAVIORAL STATUS EXAM ATTENDING PHYSICIAN: Cal Mac M.D. CARBON FURNACE OPERATOR: Gato Grossman, PhD CLINICAL PRESENTATION: The patient is a 70-year-old male admitted to the rehabilitation unit for a comprehensive inpatient rehabilitation unit to improve functional mobility, activities of daily living and self-care, mental status changes secondary to medical complexity and generalized debility. His assessment on admission to the rehabilitation unit is DJD, status post left total knee replacement on 11/26/2020 with weightbearing as tolerated, JOVI, bilateral lower extremity lymphedema, hypertension, history of DVT and AFib with home anticoagulation. Additionally, he has obstructive sleep apnea and uses a CPAP at home and obesity. A complete description of his medical condition and history can be found in his medical record. Neuropsychological consultation was requested to provide assistance in the assessment of cognitive and emotional status and provide recommendations and services. Prior to this most recent admission, the patient was living at home. He is and has a grandson that lives with them. He has 2 adult children. The patient is a high school graduate. 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 The patient indicates that he is trying to learn how to walk again. He is morbidly obese at 283 pounds and has had problems with his weight for an extended time and has been unsuccessful with his attempts to manage it. TECHNIQUES UTILIZED: Clinical interview, review of medical records, staff consultation and behavioral observation, mini mental status exam 2 standard version, clock drawing. EXAMINATION FINDINGS: The patient was alert and cooperative with the assessment. He accurately described events surrounding his admission. There is no evidence of aphasia. His thoughts are logical and goal oriented. There is no evidence of thought disorder. He describes his symptoms to primarily include [facility] [address] [place] [address] CONSULTATION Name: JOSÉ MIGUEL CUEVAS Room #: 503-P [facility] IN ..#: [id number] Admission: 11/29/20 Attend Phys: Cal Mac MD Discharge: Date of : 52 Report #: [id number] depression over the limitations in his mobility, tobacco abuse and difficulty with word finding. He has not reported anxiety, sleep or appetite difficulty, alcohol or cannabis use. Performance on the MMSE 2 brief version is within normal limits with a raw score of 14/16. He was 3/3 for initial registration, 5/5 for orientation to time and place and 1/3 for immediate recall of 3 items after a brief time delay and distraction. Performance on the MMSE 2 standard version is of 26/30. He was 3/5 for serial sevens, 2/2 for naming, 1/1 for repetition, 3/3 for comprehension. He could read and follow a single command and write a sentence. The patient was able to copy a simple geometric design. Clock drawing was within normal limits. The patient is presenting with a subtle variability in cognitive functioning. His mood appears depressed. This type of presentation suggests a variability in cognition that is associated depressed affect. DIAGNOSTIC IMPRESSION: Depressive disorder, unspecified. RECOMMENDATIONS: Consider a treatment program for depression that includes the use of an antidepressant. Outpatient psychotherapy may also be helpful to assist in his overall adjustment as well as weight management strategies. Consider a dietary consult to help in the management of his appetite. Verbal praise and complements about his progress in therapies with encouragement to maintain an active lifestyle, exercise and utilization of dietary strategies. Thank you very much for allowing me to provide the consultation on this patient. Gato Grossman, PhD NBD/ALL <ELECTRONICALLY SIGNED> By: Gato Grossman, PhD 12/14/20 1446 [id number] Gato Grossman, PhD /nt
[2020-12-14 19:05] VITALS: BP 143/85
--- NOTE | 2020-12-15 04:10 | NUR ---
PT SLEPT MOST OF THE NIGHT. HE WORE HIS HOME CPAP WHEN SLEEPING. PT CALLS OUT APPROPRIATELY FOR ASSISTANCE WHEN NEEDED. LYPHEDEMA WRAPS TO BLE. DENIES ANY PAIN. VSS. AFEBRILE. VOIDS INDEPENDENTLY WITH URINAL. FALL PRECAUTIONS IN PLACE. NO SIGNIFICANT EVENTS DURING THE NIGHT. PROGRESSING TOWARD POC GOALS. HE IS HOPING TO D/C LATER TODAY. WILL CONTINUE TO MONITOR FURTHER.
[2020-12-15] MEDS ORDERED: METHOCARBAMOL500 M2 PO ×2 (07:52→10:36)
--- NOTE | 2020-12-15 08:18 | NUR ---
PT SITTING UP IN W/C. PT STATED HE WANTED TO HAVE A PAIN PILL PRIOR TO THERAPY. PT STATED HE IS GOING HOME TODAY. ASKED PT ABOUT IF PT HAS SLIDE BOARD, HE STATED HE ORDERED ONE. LUNGS CLEAR. PT STATED PAIN IS 2 ON 1-10 SCALE. PT GOING DOWN TO GYM FOR REHAB, PT REFUSED BOWEL SOFTNERS THIS AM.
--- NOTE | 2020-12-15 08:19 | NUR ---
ADM NORCO 10MG PO FOR PAIN TO LEFT LEG OF 2 ON 1-10 SCALE.
--- NOTE | 2020-12-15 08:31 | NUR ---
Nutrition follow up: Pt continues with good intake, eating 100% at meals on regular diet. Last weight 11/29. BM 12/14. Meds reviewed. Labs reviewed. Remains low nutrition risk.
[2020-12-15 08:46] VITALS: BP 168/91
[2020-12-15] MEDS ORDERED: COLACE100 MG PO (10:34)
[2020-12-15] MEDS ORDERED: MIRALAX17 GM PO (10:36)
[2020-12-15 11:43] VITALS: BP 168/91
--- NOTE | 2020-12-15 12:40 | NUR ---
TALKED TO PT ABOUT WHEN HE IS GOING TO HAVE SLIDE BOARD. PT STATED HE ORDERED THE SLIDE BOARD AND WILL BE HOME TODAY OR TOMMORROW.
--- NOTE | 2020-12-15 14:20 | NUR ---
ADM NORCO 10MG PO FOR PAIN TO LEFT KNEE OF 5 ON 1-10 SCALE. PT GETTING READY TO GO HOME. PT DIDN'T HAVE SCRIPT FOR NARCOTIC. NOTIFIED DR. FERNANDEZ.
--- NOTE | 2020-12-15 15:03 | NUR ---
CALLED [facility] TO VERIFY ON PAIN MEDICATION, THEY DIDN'T SEE THE TRANSFER. NOTIFIED DR. FERNANDEZ ABOUT NO SCRIPT TO PHARMACY, HE IS LOOKING INTO IT.
--- NOTE | 2020-12-15 16:30 | NUR ---
PT LEFT VIA W/C TO CAR. PT WAS ABLE TO WHEEL SELF TO ELEVATOR AND TRANSFER TO CAR VIA SLIDE INTO FROM W/C. PT VERBALY UNDERSTOOD D/C ORDERS. PAPER PAIN SCRIPT GIVEN TO PT AND D/C ORDERS AND WOUND DRESSING ORDERS.
== END 2020-12-15 16:30 | disposition home health service (06) | DRG 92 ==
PROVIDERS: Hospitalist; Nurse Practitioner; Nurse Practitioner Family; Orthopaedic Surgery; ADMIT Physical Medicine & Rehabilitation; ATTEND Physical Medicine & Rehabilitation
PROC: 5A09557 Assistance with Respiratory Ventilation, Greater than 96 Consecutive Hours, Continuous Positive Airway Pressure (ICD-10-PCS; principal; 2020-12-05)
DX: R26.89 Other abnormalities of gait and mobility (principal); N17.9 Acute kidney failure, unspecified; Z68.42 Body mass index [BMI] 45.0-49.9, adult; E44.0 Moderate protein-calorie malnutrition; R53.81 Other malaise; M17.12 Unilateral primary osteoarthritis, left knee; I10 Essential (primary) hypertension; I48.91 Unspecified atrial fibrillation; G47.33 Obstructive sleep apnea (adult) (pediatric); E66.9 Obesity, unspecified; I87.2 Venous insufficiency (chronic) (peripheral); F32.9 Major depressive disorder, single episode, unspecified; K59.00 Constipation, unspecified; I89.0 Lymphedema, not elsewhere classified; Z99.3 Dependence on wheelchair; Z86.718 Personal history of other venous thrombosis and embolism; Z79.899 Other long term (current) drug therapy; Z79.01 Long term (current) use of anticoagulants
CPT/HCPCS: 10112

== ENCOUNTER 2021-01-05 10:05 | Inpatient (IN) | payer OTHER ==
[~2021-01-05] VITALS: Ht 172.7 cm; Wt 115.2 kg
[2021-01-05 10:05] VITALS: BP 97/68
[~2021-01-05 10:05] MED LIST changes: +CARVEDILOL25 MG PO; +COLACE100 MG PO; +METHOCARBAMOL500 M2 PO; +MIRALAX17 GM PO; +NORCO 10-325 T1 EACH PO; +NORCO7.5 PO; +PROTONIX 20 MG20 M1 PO; +VISTARIL 25 MG25 M1 PO; +[UNRECOGNIZED DRUG - REMARK] PO
[2021-01-05 10:24] LABS: HEMATOCRIT 41.8 % (42.0-52.0); HEMOGLOBIN 14.3 gm/dL (14.0-18.0); MCH 30.5 pg (26.0-34.0); MCHC 34.2 g/dL (28.0-37.0); MCV 89.2 fL (80.0-100.0); PLATELET COUNT 185 thou/uL (150-400); RBC 4.68 mil/uL (4.50-6.00); RDW 15.6 % (10.5-14.5); WBC 6.1 thou/uL (4.0-11.0)
[2021-01-05 10:34] LABS: ALBUMIN 3.6 g/dL (3.4-5.0); CALCIUM 9.5 mg/dL (8.5-10.1); CREATININE 2.3 mg/dL (0.7-1.3); TOTAL BILIRUBIN 1.4 mg/dL (0.2-1.0); TOTAL PROTEIN 8.4 g/dL (6.4-8.2)
[2021-01-05 10:42] LABS: POTASSIUM 2.7 mmol/L (3.5-5.1)
[2021-01-05 10:51] LABS: INR 2.7; PROTIME 28.1 Seconds (10.5-12.1)
[2021-01-05 10:52] LABS: TROPONIN-I <0.06 ng/mL (<0.06)
[2021-01-05 11:06] LABS: MAGNESIUM 2.1 mg/dL (1.8-2.4)
[2021-01-05 11:27] LABS: ABSOLUTE NEUTROPHILS 3.2 thou/uL (1.4-8.2); PLATELET ESTIMATE NORMAL
--- NOTE | 2021-01-05 12:30 | EKG ---
[place] [address] [facility] [place] [address] ELECTROCARDIOGRAM REPORT Name: JOSÉ MIGUEL CUEVAS [id number] Admission: 01/05/21 Attend Phys: Discharge: Date of : 52 Report #: [id number] [facility] ED Test Date: 2021-01-05 Test Time: 10:05:15 Pat Name: JOSÉ MIGUEL CUEVAS Department: Room: Gender: Parking Patroller: : 1950 Requested By: Sophia Walden Order Number: [id number] MD: Sebas Hernandez Measurements Intervals [place] Rate: 56 P: [place]: QRS: -48 QRSD: 117 T: 39 QT: 497 QTc: 480 Interpretive Statements Atrial fibrillation Left anterior fascicular block Low voltage, precordial leads Compared to ECG 09/30/1999 20:37:57 Left anterior fascicular block now present Low QRS voltage now present Sinus rhythm no longer present Incomplete right bundle-branch block no longer present T-wave abnormality no longer present Electronically Signed On 01-05-2021 12:30:11 CDT by Sebas Hernandez [email or web address] <ELECTRONICALLY SIGNED> By: Sebas Hernandez MD, FAC 01/05/21 1230 1005 1005 Sebas Hernandez MD, [facility] /EPI
[2021-01-05 15:37] LABS: URINE BILIRUBIN NEGATIVE (Negative); URINE BLOOD TRACE (Negative); URINE CLARITY CLEAR; URINE COLOR YELLOW; URINE GLUCOSE-RANDOM* NEGATIVE (Negative); URINE KETONES NEGATIVE (Negative); URINE LEUKOCYTES-REFLEX NEGATIVE (Negative); URINE NITRITE-REFLEX NEGATIVE (Negative); URINE PROTEIN (DIPSTICK) NEGATIVE (Negative); URINE UROBILINOGEN 0.2 E.U./dl (0.2-1.0)
[2021-01-05 17:46] LABS: MAGNESIUM 2.1 mg/dL (1.8-2.4); PHOSPHORUS 3.4 mg/dL (2.6-4.7)
[2021-01-05 18:25] LABS: CALCIUM 9.1 mg/dL (8.5-10.1); CREATININE 2.1 mg/dL (0.7-1.3)
[2021-01-05 18:27] LABS: POTASSIUM 2.6 mmol/L (3.5-5.1)
[2021-01-05 19:08] LABS: MAGNESIUM 2.1 mg/dL (1.8-2.4); PHOSPHORUS 2.8 mg/dL (2.5-4.9)
[2021-01-05 19:36] VITALS: BP 105/48
[2021-01-05 20:00] VITALS: BP 129/83
[2021-01-05 20:02] VITALS: BP 119/66
--- NOTE | 2021-01-05 20:40 | NUR ---
PT IS ALERT AND ORIENTED X4. LUNGS ARE CLEAR ON ROOM AIR. FAMILY WITH PT. ADMIT TO 2 NORTH. HAD A SYNOPE EPISODE DURING PHYSICAL THERAPY TODAY, PT HAD A LEFT TOTAL KNEE REPLACEMENT. ACUTE RENAL FAILURE AND HYPOKALEMIA, DEHYPDRATED. ABDOMEN IS SOFT BOWEL SOUNDS POSITIVE. LEFT KNEE 2 PLUS EDEMA PT HAD A LEFT KNEE REPLACEMENT. REPLACE HIS POTASIUM PER ORDER. PLAN OF CARE DISCUSSED WITH PT. CONSENTS SIGNED. CALL LIGHT WITHIN REACH IF NEEDS ASSISTANCE PER NURSING
[2021-01-06] VITALS: BP 120/66
[2021-01-06 01:38] LABS: ABSOLUTE NEUTROPHILS 3.1 thou/uL (1.4-8.2); BASOPHILS 1.2 % (0.0-2.0); EOSINOPHILS 3.8 % (0.0-3.0); HEMATOCRIT 38.6 % (42.0-52.0); HEMOGLOBIN 13.1 gm/dL (14.0-18.0); LYMPHOCYTES 25.9 % (24.0-44.0); MCH 30.3 pg (26.0-34.0); MCHC 33.9 g/dL (28.0-37.0); MCV 89.4 fL (80.0-100.0); MONOCYTES 11.9 % (1.0-8.0); PLATELET COUNT 156 thou/uL (150-400); POLYS 57.2 % (36.0-66.0); RBC 4.31 mil/uL (4.50-6.00); RDW 15.6 % (10.5-14.5); WBC 5.4 thou/uL (4.0-11.0)
[2021-01-06 01:49] LABS: CALCIUM 8.8 mg/dL (8.5-10.1); MAGNESIUM 1.9 mg/dL (1.8-2.4); POTASSIUM 3.2 mmol/L (3.5-5.1)
--- NOTE | 2021-01-06 04:03 | NUR ---
RESTING THROUGH THE NIGHT REPLACEMENT OF POTASSIUM GIVEN DUE TO LAB VALUES. SCDS PLACED ON PT HISTORY OF DVT. DENIES PAIN ISSUES AND SLEEPING IN BETWEEN NURSING ASSESSMENTS AT THIS TIME OF CARE.
--- NOTE | 2021-01-06 08:38 | 2DMMODE ---
[facility] [place] [address] 2 D/M-MODE ECHOCARDIOGRAM Name: JOSÉ MIGUEL CUEVAS Room #: 200-I ADM IN M.R.#: [id number] Admission: 01/05/21 Attend Phys: Tessa Hector MD Discharge: Date of : 52 Report #: [id number] THIS REPORT FOR: cc: Toro Garnett K. Steven DO Lundgren, Craig H. MD [facility] ~ APPROVED REPORT Study performed: 01/06/2021 07:23:13 EXAM: Comprehensive 2D, Doppler, and color-flow Echocardiogram Patient Location: Bedside Room #: 200 Status: routine BSA: 2.26 HR: 55 bpm BP: 120/55 mmHg Rhythm: Atrial Fibrillation/PVCs Other Information Study Quality: Adequate Indications Syncope Hx: Afib, HTN. 2D Dimensions RVDd: 49.39 mm IVSd: 13.11 (7-11mm) LVOT Diam: 25.22 (18-24mm) LVDd: 51.92 mm PWd: 13.41 (7-11mm) LVDs: 37.73 (25-40mm) Left Atrium: 51.08 (27-40mm) Aortic Root: 44.40 mm Volumes Left Atrial Volume (Systole) Single Plane 4CH: 119.47 mL Single Plane 2CH: 107.28 mL LA ESV Index: 55.00 mL/m2 Aortic Valve AoV Peak Lenny.: 1.06 m/s AO Peak Gr.: 4.49 mmHg LVOT Max P.38 mmHg LVOT Max V: 0.59 m/s [facility] [address] [place] [address] 2 D/M-MODE ECHOCARDIOGRAM Name: JOSÉ MIGUEL CUEVAS Room #: 200-I [facility] [place] [facility]#: [id number] Admission: 01/05/21 Attend Phys: Tessa Hector, Discharge: Date of : 52 Report #: [id number] ELYSSA Vmax: 2.76 cm2 Mitral Valve MV Decel. Time: 181.06 ms MV E Max Lenny.: 1.01 m/s Tricuspid Valve TR Peak Lenny.: 2.39 m/s TR Peak Gr.: 23.02 mmHg Left Ventricle The left ventricle is normal size. There is normal LV segmental wall motion. There is normal left ventricular wall thickness. Left ventricular systolic function is normal. LVEF is 55-60%. Unable to evaluate LV diastolic function due to atrial fibrillation. Right Ventricle Right ventricle is dilated. The right ventricular systolic function is normal. Atria Severe biatrial enlargement. Aortic Valve The aortic valve is normal in structure. No aortic regurgitation is present. There is no aortic valvular stenosis. Mitral Valve Mild mitral annular calcification Trace mitral regurgitation. No evidence of mitral valve stenosis. Tricuspid Valve The tricuspid valve is normal in structure. Mild to moderate tricuspid regurgitation. Estimated pulmonary artery pressure of 30mmHg. Pulmonic Valve Pulmonic valve is not well visualized. Great Vessels The sinus of valsalva is dilated at 4.4cm. Ascending aorta is not well visualized. IVC is not well visualized. Pericardium There is no pericardial effusion. [facility] [address] [address] 2 D/M-MODE ECHOCARDIOGRAM Name: JOSÉ MIGUEL CUEVAS Room #: 200-I [facility]#: [id number] Admission: 01/05/21 Attend Phys: Tessa Hector, Discharge: Date of : 52 Report #: [id number] <Conclusion> Left ventricular systolic function is normal. There is normal LV segmental wall motion. LVEF is 55-60%. Severe biatrial enlargement. The aortic valve is normal in structure. No aortic regurgitation or stenosis Mild mitral annular calcification. Trace mitral regurgitation. Mild to moderate tricuspid regurgitation. Estimated pulmonary artery pressure of 30mmHg. There is no pericardial effusion. <ELECTRONICALLY SIGNED> By: Lázaro Mercer MD, FACC 01/06/2137 6 6 Lázaro Mercer MD, FACC /INF
[2021-01-06 09:21] VITALS: BP 106/69
--- NOTE | 2021-01-06 09:40 | NUR ---
70-year-old male from recent admission was brought [facility] status post syncopal episode while in outpatient therapy. Of note was discharged from the hospital on 12-12-20 from acute rehab for recent knee replacement surgery. Found to be hypotensive and hypokalemic and seen by MD this AM and was found to be able to discharge back to outpatient therapy. Spoke with patient who does not wish for home health services and will resume outpatient therapy. CM will follow if needs should change per MD as discharge order has been placed.
[2021-01-06 11:53] VITALS: BP 106/65
[2021-01-06 11:54] VITALS: BP 106/65
[2021-01-06 14:15] LABS: INR 3.25; PROTIME 33.5 Seconds (10.5-12.1)
[2021-01-06 15:31] VITALS: BP 106/65
== END 2021-01-06 16:43 | disposition home or self-care (01) | DRG 640 ==
LOC: ER 10:05 → 2N 16:31 → EROBS 16:31 → 2N 20:12
PROVIDERS: Emergency Medicine; Nurse Practitioner; ADMIT Internal Medicine; ATTEND Internal Medicine
DX: E86.0 Dehydration (principal); N17.0 Acute kidney failure with tubular necrosis; I48.20 Chronic atrial fibrillation, unspecified; I95.1 Orthostatic hypotension; Z20.822 Contact with and (suspected) exposure to COVID-19; E66.9 Obesity, unspecified; E87.6 Hypokalemia; Z96.652 Presence of left artificial knee joint; K59.09 Other constipation; M17.12 Unilateral primary osteoarthritis, left knee; F17.220 Nicotine dependence, chewing tobacco, uncomplicated; N18.9 Chronic kidney disease, unspecified; I89.0 Lymphedema, not elsewhere classified; I12.9 Hypertensive chronic kidney disease with stage 1 through stage 4 chronic kidney disease, or unspecified chronic kidney disease; G47.33 Obstructive sleep apnea (adult) (pediatric); D64.9 Anemia, unspecified; I48.0 Paroxysmal atrial fibrillation; Z79.01 Long term (current) use of anticoagulants; Z86.718 Personal history of other venous thrombosis and embolism; Z68.38 Body mass index [BMI] 38.0-38.9, adult; Z80.0 Family history of malignant neoplasm of digestive organs
CPT/HCPCS: 10081

== ENCOUNTER → 2021-01-19 | Outpatient (CLI) | payer OTHER | LOC: SJCVCIMAG 07:38 | PROVIDERS: ATTEND Internal Medicine Cardiovascular Disease | DX: I49.3 Ventricular premature depolarization (principal); R55 Syncope and collapse; I48.91 Unspecified atrial fibrillation; I10 Essential (primary) hypertension; R60.9 Edema, unspecified; Z79.899 Other long term (current) drug therapy; Z79.01 Long term (current) use of anticoagulants ==

== ENCOUNTER 2021-02-27 14:07 | Emergency (ER) | payer OTHER ==
[~2021-02-27] VITALS: Ht 172.7 cm; Wt 114.3 kg
[2021-02-27 14:33] LABS: HEMATOCRIT 42.8 % (42.0-52.0); HEMOGLOBIN 14.8 gm/dL (14.0-18.0); MCH 30.7 pg (26.0-34.0); MCHC 34.6 g/dL (28.0-37.0); MCV 88.8 fL (80.0-100.0); RBC 4.81 mil/uL (4.50-6.00); RDW 14.7 % (10.5-14.5); WBC 5.4 thou/uL (4.0-11.0)
[2021-02-27 14:43] LABS: CALCIUM 9.4 mg/dL (8.5-10.1); POTASSIUM 4.1 mmol/L (3.5-5.1)
[2021-02-27 14:49] LABS: ALBUMIN 3.6 g/dL (3.4-5.0); TOTAL BILIRUBIN 1.6 mg/dL (0.2-1.0); TOTAL PROTEIN 7.9 g/dL (6.4-8.2)
[2021-02-27 18:50] VITALS: BP 125/71
--- NOTE | 2021-02-28 09:43 | EKG ---
[place] [address] [facility] [place] [address] ELECTROCARDIOGRAM REPORT Name: JOSÉ MIGUEL CUEVAS [id number] Admission: 02/27/21 Attend Phys: Discharge: 02/27/21 Date of : 52 Report #: [id number] [facility] ED Test Date: 2021-02-27 Test Time: 14:25:47 Pat Name: JOSÉ MIGUEL CUEVAS Department: Room: Gender: M Senior Planning Manager: : 1950 Requested By: Ash Cristobal Order Number: [id number] MD: Sebas Hernandez Measurements Intervals [place] Rate: 60 P: MD: QRS: -41 QRSD: 104 T: 34 QT: 457 QTc: 457 Interpretive Statements Atrial fibrillation Ventricular premature complex Left axis deviation Low voltage, precordial leads Compared to ECG 01/05/2021 10:05:15 Ventricular premature complex(es) now present Left-axis deviation now present Left anterior fascicular block no longer present Electronically Signed On 02-28-2021 9:43:17 CDT by Sebas Hernandez [email or web address] <ELECTRONICALLY SIGNED> By: Sebas Hernandez MD, [facility] 02/28/21 0943 1425 1425 Sebas eHrnandez MD, [facility] /EPI
== END 2021-02-27 18:50 | disposition home or self-care (01) ==
LOC: ER 14:07
PROVIDERS: Physician Assistant
DX: E86.0 Dehydration (principal); I95.1 Orthostatic hypotension; E66.9 Obesity, unspecified; Z98.890 Other specified postprocedural states